=== PATIENT | male | born 1945 | race Caucasian/White ===

== ENCOUNTER 2023-06-28 06:25 | Day surgery (SDC) | payer OTHER, SELFPAY ==
[2023-06-17 13:45] VITALS: BMI 33.6
[2023-06-28] VITALS (10 sets, daily range): BP systolic 104–166; BP diastolic 55–79; PULSE 63–85; RESP 15–18; TEMP 36.1–36.7; O2SAT 95–98; BMI 33.6
--- NOTE | 2023-06-28 | DI.RAD.S_ITS ---
PROCEDURE: XR HIP W PEL IF DONE RT 2V INDICATIONS: TOTAL HIP SURGERY TECHNIQUE: 2 view(s) of the hip acquired. COMPARISON: [facility], [place], XR HIP W PEL IF DONE RT 2V, 06/28/2023, 10:23. FINDINGS: Intraoperative right hip arthroplasty. There is good anatomic alignment. Hardware appears intact. IMPRESSION: Intraoperative right hip arthroplasty. Dictated by: Sandy Quijano M.D. on 06/29/2023 at 11:07 Approved by: Sandy Quijano M.D. on 06/29/2023 at 11:08
[2023-06-28] MEDS: LACTATED RINGERS 1,000 ML 42 ML IV (06:46)
[2023-06-28] MEDS: ACETAMINOPHEN 325 MG TABLET 975 MG PO (06:56)
[2023-06-28] MEDS: MELOXICAM 7.5 MG TABLET PO (06:56)
--- NOTE | 2023-06-28 07:46 | PM.PREOP ---
Pre-operative Note Interval Note History & Physical reviewed/Exam performed by Physician: Yes Changes to H&P: No
--- NOTE | 2023-06-28 08:00 | DI.RAD.S_ITS ---
PROCEDURE: XR HIP W PEL IF DONE RT 2V INDICATIONS: DA right JUANPABLO TECHNIQUE: AP pelvis and lateral view of the hip acquired. COMPARISON: [facility], [place], XR HIP W PEL IF DONE RT 2V, 06/28/2023, 9:06. FINDINGS: Bones: Patient is status post right hip arthroplasty, with no evidence of hardware loosening or infection The hip joint appears congruent. The visualized bony structures appear intact. Soft tissues: Apparent grossly unremarkable radiographically IMPRESSION: Post-operative appearance of a hip arthroplasty. Dictated by: Reg Bethea M.D. on 06/28/2023 at 12:35 Approved by: Reg Bethea M.D. on 06/28/2023 at 12:39
[2023-06-28] MEDS: CEFAZOLIN 2 GM/100 ML PREMIX 100 ML IV ×2 (08:01→16:10)
[2023-06-28] MEDS: TRANEXAMIC ACID 1,000 MG VIAL 2000 MG INJ ×2 (08:12→09:50)
--- NOTE | 2023-06-28 08:43 | SUR.OPER ---
Patient supine on padded [place] table, one arm on padded arm board at <90, other arm padded and secured with tape across patient's chest, both legs secured in padded traction boots and positioned per surgeon, padded post at patient's groin, pressure points checked and padded.
[2023-06-28] MEDS: ROPIVACAINE/EPI/CLONIDINE/KET 50 ML SYRINGE INJ (08:49)
--- NOTE | 2023-06-28 10:33 | PM.OP.1 ---
Operative Date/Time/Diagnoses Date of procedure: 06/28/23 Pre-op diagnosis: Right hip arthritis Post-op diagnosis: same Procedure & Clinicians Procedure: Right total hip arthroplasty Same procedure as scheduled: Yes Surgeon: Fidencio Reyes Sqe: Marie Quijano Anesthesia Type: Spinal, Sedation and Local Operative Notes Estimated Blood Loss (mL): 300 Procedure in detail: Implants: Depuy Total Hip Arthroplasty: Depuy [place] Gription size 58 cup? Depuy Actis femoral stem size 7 standard offset? 36+ 5 ceramic femoral head? Procedure Summary: 78-year-old male with right hip arthritis with good bone stock. I was able to achieve a good pinch fit with his acetabular cup without screws and mobilize his femur without a conjoined tendon release. He had good stability with all trialing Procedure in Detail: This patient was seen preoperatively and evaluated for hip pain which was refractory to numerous nonoperative treatment modalities. Their hip pain correlated with radiographic changes demonstrating significant degeneration in the hip joint. The risks and benefits of continued nonoperative management versus operative management were discussed at length and all of the patient?s questions were answered. Additional educational materials providing further details beyond our discussion in clinic were provided via a publicly available patient education video which included the incidence of medical complications associated with total hip arthroplasty, reasons for revision following total hip arthroplasty, and patient satisfaction rates following total hip arthroplasty. That video can be accessed at [email or web address] . With this understanding of the risks inherent to the procedure, the patient elected to move forward with operative management. Following preoperative optimization, the patient was scheduled for surgery. The patient was met in the preoperative holding area the day of the procedure and all questions were answered. The patient?s nares were swabbed with betadine in order to decolonize them from MRSA. Informed consent was signed and the operative limb was marked with indelible ink.? The patient was brought back to the operating room where anesthesia was induced. The patient was transferred to the [place] table and all bony prominences were padded. The operative site was prepped and draped in the usual sterile fashion. Prior to incision, tranexamic acid and cefazolin were administered. Operative templating images were displayed demonstrating the anticipated implant sizes and correct operative extremity. A timeout procedure was performed verifying the patient?s identity, medical comorbidities, allergies, relevant medications, anesthesia type and the surgical plan. All present were in agreement. The assistance of a physician obstetric assistant was required for positioning, room setup, soft tissue retraction and wound closure. Without this assistance, the procedure would have been significantly more challenging and time consuming.?? A direct anterior approach to the hip was utilized. This was performed with a longitudinal incision through a Heuter interval. The incision was planned 2 cm distal and 2 cm lateral to the ASIS extending towards the lateral patella, in line with the muscle body of the TFL. Following incision, the subcutaneous tissue was dissected while taking care to avoid injury to the lateral femoral cutaneous nerve. The fascia overlying the TFL was identified by dissecting off the overlying fat and identifying perforating vessels to the TFL. The TFL fascia was incised and dissected away from the medial border of the TFL. A cobra retractor was placed over the superior femoral neck between the abductors and the hip capsule and used to reflect the TFL laterally. A [place] self-retainer was then placed in the distal aspect of the wound between the TFL and the rectus femoris. This was tensioned to open up the direct anterior interval and the lateral circumflex vessels were identified and coagulated using electrocautery. The floor of the TFL fascia was incised, exposing the pericapsular fat overlying the hip capsule. A second cobra retractor was placed on the inferior femoral neck. A double-bent soft tissue retractor was placed on the anterior wall of the acetabulum and used to tension the reflected head of rectus femoris, which was then released in order to limit soft tissue tension. A capsulotomy was made in the midline of the anterior hip capsule in line with the femoral neck ending at the vastus tubercle. The double-bent retractor was removed in order to limit the amount of time that a soft tissue retractor remained on the anterior wall and protect the femoral nerve. Tag stitches were placed in the superior and inferior leaflets of the hip capsule. An [place] soft tissue retractor was introduced over the tag stitches and tensioned in the interval between the rectus femoris and the TFL in order to retract and protect those muscles. The cobra retractors were replaced intracapsularly, with one over the superior neck in the pocket created by the base of the greater trochanter and the other on the femoral head. The capsulotomy was extended laterally to the base of the greater trochanter and medially to the lesser trochanter. This required externally rotating the hip. Once the lesser trochanter had been identified, a neck cut was planned according to measurements from preoperative templating. A ruler was cut at the length measured between the superior aspect of the lesser trochanter and the collar of the prosthesis. This line was extended towards the inferior aspect of the lateral cobra retractor to plan a cut which would leave minimal residual femoral neck laterally. The neck was cut at 60 degrees of external rotation along that line. A second cut was performed to remove a large napkin ring and facilitate head extraction. The napkin ring cut and femoral head were removed.?? A broad anterior wall retractor was placed between the labrum and the anterior capsule so that the anterior capsule would prevent capturing and pinching the femoral nerve anteriorly. An additional retractor was placed on the posterior wall. External rotation and traction were applied through the [place] table so that the cut surface of the femoral neck would not restrict access to the acetabulum. The labrum was excised sharply and the pulvinar was excised with electrocautery to limit bleeding from branches of the obturator artery. Acetabular reamers were selected based on preoperative templating and measurements of the excised femoral head. These were introduced into the acetabulum. Fluoroscopy was utilized to replicate a standing AP pelvis radiograph by centering over the pelvis, rotating until there was appropriate symmetry between the obturator foramen, and introducing caudal tilt to match the position of the pubic symphysis relative to the sacrococcygeal junction according to the patient?s anatomy. Fluoroscopy was utilized to ensure appropriate reaming depth. Once satisfied with the reaming depth corresponding to the preoperative template and the pinch fit between the columns, an appropriate sized acetabular cup was selected which would provide 1 mm of press-fit. This cup was introduced and manipulated until appropriate abduction and anteversion angles were obtained with careful attention to appropriate abduction and anteversion angles as evaluated by the position of the cup relative to the anterior and posterior finnegan of the acetabulum and the AP fluoroscopy which recreated the patient?s standing radiograph. The cup was impacted into place. Peripheral osteophytes were removed. The acetabular liner was then placed with care to ensure locking of the locking mechanism.? Attention was then turned to the femur. All retractors were removed, traction was released, a retractor was placed in the interval between the hip capsule and the gluteus minimus, and the hip was externally rotated to 90 degrees. Traction was applied through the [place] table to tension the lateral capsule and this was released using electrocautery. Traction was released and a [place] hook was placed posteriorly around the proximal femur at the level of the vastus ridge. The table height was lowered in order to restrict the tension on the anterior structures during hip hyperextension to limit the risk of femoral nerve palsy. With traction off and the hip at 90 degrees of external rotation, the hip was hyperextended and adducted while manually elevating the femur away from the acetabulum with the [place] hook to ensure it would not be caught behind the greater trochanter. An asymmetric retractor was placed over the calcar and a broad double-pronged retractor was placed over the greater trochanter. The tag stitch capturing the lateral leaflet of the capsule was moved to the medial side, leaving the conjoined and piriformis tendons isolated in the face of the greater trochanter. The hip was externally rotated and elevated. A release of the conjoined tendon was not necessary in order to obtain adequate exposure for broaching. The canal was opened with an opening broach and a rasp was used to remove cancellous bone. A rongeur was used to remove the residual lateral bone at the base of the greater trochanter to avoid placing the stem in varus. The femur was then broached to the appropriate sized stem yielding good rotational fit and fill of the canal as well as appropriate version of the stem trial. Neck and head trials were placed, all retractors were removed and the hip was returned to neutral abduction and extension. I then reduced the hip. An AP pelvis fluoroscopic image matching the preoperative standing radiograph was obtained with both lesser trochanters visible and both hips in 40 degrees of external rotation. This demonstrated appropriate leg length and offset. He does have an abnormally shaped lesser trochanter which is especially elongated so I used the superior edge of the lesser trochanter as the basis for my measurement. An AP hip fluoroscopic image was obtained with the hip in neutral rotation which demonstrated good canal fill. Good canal fill was likewise demonstrated on a 90 degree externally rotated image. Hip stability was evaluated with 90 degrees of external rotation and a 45 degree drop test which demonstrated good stability. The hip was dislocated and I returned to the broaching position. The definitive stem was placed and the trunnion was cleaned and dried. I placed a ceramic head onto the trunnion and impacted it into place on the [place] taper.?? All retractors were removed and the hip was reduced. A dilute mixture of betadine and peroxide was used to bathe the soft tissues during final fluoroscopic assessment. Appropriate component positioning was confirmed on an AP pelvis radiograph with the operative and nonoperative legs in 40 degrees of external rotation, evaluating leg length and offset. Appropriate stem fill was evaluated on an AP hip radiograph with the operative leg in neutral rotation. No fractures were identified on these radiographs. Stability was satisfactory with a 90 degree external rotation test as well as a 45 degree drop test. The hip was copiously irrigated with pulse lavage. The capsule was closed with absorbable interrupted suture. The TFL fascia was closed with barbed suture while carefully protecting the lateral femoral cutaneous nerve from entrapment. A mixture of Ropivacaine, Epinephrine, Clonidine and Toradol was infiltrated throughout the soft tissues. The skin was closed with 2-0 and 3-0 sutures. Surgical glue was applied and a soft dressing was placed.??The sponge, instrument and needle counts were reported as being correct at the end of the case.??No obvious complications occurred. The patient was transferred from the [place] table back to a stretcher. The patient emerged from anesthesia without difficulty and was taken to the PACU in a stable condition.? Plan for aftercare: Anterior hip precautions Weightbearing as tolerated Mobilization as soon as the patient has recovered from anesthesia. If physical therapists are unavailable at the time the patient is ready to ambulate, then nursing staff should help patient ambulate Aspirin 81 twice per day for DVT prophylaxis Multimodal pain regimen with no IV opioids ordered Anticipate discharge home today Follow up at [facility] in 2 weeks Detailed postoperative instructions available at [email or web address]
[2023-06-28] MEDS: ACETAMINOPHEN 325 MG TABLET 650 MG PO ×2 (11:56→16:16)
[2023-06-28] MEDS: IBUPROFEN 600 MG TABLET PO ×2 (11:57→16:16)
[2023-06-28] MEDS: LACTATED RINGERS 1,000 ML 100 ML IV (12:00)
--- NOTE | 2023-06-28 12:45 | PC.NURSE ---
Patient arrived from PACU this a.m. at 1057. He is A&Ox4 drinking coffee, he reports numbness to R LE but able to wiggle toes. Aquacel is c/d/i. He denies pain. Oriented to room, call light in reach, urinal in place, IVF LR @100ml/hr,encouraged to use IS, SCD's in place, ICE to R hip. He tolerates lunch well. VSS, afebrile on RA. Due to void this afternoon at 1600. Continuous monitoring.
--- NOTE | 2023-06-28 13:15 | PT.IIE ---
Current Diagnoses Unilateral primary osteoarthritis, right hip (06/28/23) Surgery Performed Operation Date: 06/28/23 07:45 Actual Procedures p Total Hip Arthroplasty/Anterior Approach(Right) - Fidencio Reyes MD Surgical History (Last Updated 06/17/23 @ 14:19 by Liberty Hightower RN) History of eye surgery History of right cataract extraction Hx of craniotomy (~2016) Hx of hernia repair Medical History (Last Updated 06/17/23 @ 14:20 by Liberty Hightower RN) Brain bleed (~2016) Enlarged prostate History of COVID-19 (2021) HLD (hyperlipidemia) HTN (hypertension) Osteoarthritis Peripheral neuropathy Pre-diabetes RLS (restless legs syndrome) Physical Therapy Inpatient Evaluation/Re-Eval M1 PT/OT-IP Prior Functional Status Start: 06/28/23 14:57 Freq: NEEDED Status: Active Protocol: Document 06/28/23 13:15 AB (Rec: 06/28/23 15:15 AB [id number]) Medical Review Prior Functional Status Medical History Reviewed Yes Communication able to make needs known Mobility and Gait pt stated that he was independent with all mobilities and ambulation without AD Social History Household Members spouse,children Living Arrangements House Number of Floors (Floors) Two Floors Number of Stairs To Enter/Railing? pt has a sunken living room: 1 step down has 1 step to enter the house Home Environment High Toilet,Walk in Shower Home Equipment Front Wheel Walker,Bedside Commode,Leg K[place]ara [place],Grab Bars In Shower Additional Social History Comment pt's spouse will be assisting pt but will also have his children rotating to stay with them to assist as well pt has an adjustable bed M2 PT-IP Current Condition Start: 06/28/23 14:57 Freq: NEEDED Status: Active Protocol: Document 06/28/23 13:15 AB (Rec: 06/28/23 15:15 AB [id number]) Physical Therapy Current Condition Current Condition Evaluation Date 06/28/23 Treatment Diagnosis s/p R JUANPABLO anterior; difficulty in walking Onset Date 06/28/23 M3 PT-IP Subjective Start: 06/28/23 14:57 Freq: NEEDED Status: Active Protocol: Document 06/28/23 13:15 AB (Rec: 06/28/23 15:15 AB [id number]) Subjective Physical Therapy Visit Type Type Initial Evaluation Visit Start Time 13:15 Visit Stop Time 14:30 Total Visit Minutes 75 Number of FURNACE KEEPER Visits 0 Physical Therapy Visit Comments Patient Comments agreeable to do PT Therapy Pain Assessment Location Right Hip Intensity 2 Scale Used Numeric (0 - 10) Pain Management Techniques Apply Cold,Distraction, Modification of Treatment,Re- positioning,Timing of Activity with Medications M4 PT-IP Mobility and Gait Start: 06/28/23 14:57 Freq: NEEDED Status: Active Protocol: Document 06/28/23 13:15 AB (Rec: 06/28/23 15:15 AB [id number]) PT-Bed Mobility Assessment Supine to Sit Supine to Sit Standby Assistance Sit to Supine Sit to Supine Standby Assistance PT-Transfer Assessment Sit to and From Stand Sit to and from Stand Contact Guard Assistance,1 Person Assistance,Use of Upper Extremities Equipment Transfer Assistive Device Gait Belt,Front Wheeled Walker Orthotic/Prosthetic Devices or Brace: No Transfers Transfer Destination Chair Transfer Technique ambulated Transfer Ability Level of Assist Contact Guard Assistance,1 Person Assistance,Use of Upper Extremities Comments Mobility Comments pt supine in bed. daughter in room. obtained PLOF and home set up from pt. post-op folder provided and reviewed content with pt. educated pt regarding R anterior hip precautions. pt was able to recall after education provided. BP in supine: 144/68 pt completed supine to sit SBA with cues for techniques. pt requiring increase time to complete task. pt able to sit on EOB SBA. no c/o dizziness. completed sit to stand CGA and ambulated in room ~ 30 ft with initial min A but only needing CGA midway with ambulation. requires cues for hip precautions especially during turning. pt sat on the chair. caregiver training conducted. educated pt's daughter on use of safety belt and how to assist pt. daughter was able to put safety belt on and assisted pt with sit to stand and ambulation in room ~ 12 ft . pt sat on EOB. educated pt and daughter regarding stair climbing and car transfers. pt completed sit to stand from EOB CGA with daughter assisting and ambulated towards the platform step. pt completed up/down platform step using FWW with daughter assisting min A. pt ambulated in the hallway ~ 40 ft using fWW CGA with daughter assisting and completed up/ down step again using FWW min A and occasional cues for hip precautions. pt ambulated back to his room and sat on EOB. educated pt on sit to supine in bed. pt completed SBA. pt wants to sit back up on the chair. supine to sit SBA. step transfer to the chair using FWW CGA with daughter assisting. positioned pt on the chair. call light and table placed within reach. pt and daughter without further concerns. Gait Assessment Gait Gait Assistance Required: Contact Guard Assist,Minimum Assistance Distance (Feet) 40 Able to Maintain Weight Bearing Status Yes During Gait Assistive Devices Assistive Device Gait Belt,Front Wheeled Walker Orthotic/Prosthetic Devices or Brace: No Gait Deviations General Gait Pattern Decreased Feet Clearance Factors Limiting Gait Function Factors Limiting Gait Function Decreased Activity Tolerance, Decreased Strength,Limited Range of Motion,Pain,Poor Balance Stair Climbing Assessment Evaluation Level of Assist On Stairs Minimal Assistance Devices Stair Climbing Assistive Devices Front Wheel Walker Technique/Endurance Stair Climbing Direction Ascend and Descend Stair Climbing Technique Step to Step Number of Steps Climbed 1 Query Text: Stair Climbing Set # Repetitions (reps) 2 PT-Balance Assessment Sitting Balance and Reactions Static Sitting Balance Ability Normal Dynamic Sitting Balance Ability Good Standing Balance and Reactions Static Standing Balance Ability Fair Dynamic Standing Balance Ability Fair Device Used FWW M5 PT-IP Objective Assessments Start: 06/28/23 14:57 Freq: NEEDED Status: Active Protocol: Document 06/28/23 13:15 AB (Rec: 06/28/23 15:15 AB [id number]) Orientation Orientation/Cognition Level of Alertness Alert Orientation Name,Place,Situation Language Function Ability No Deficits Noted Safety Awareness Understands Safety Issues Memory Description No Deficits Noted Gross Range of Motion Lower Extremity ROM Assessment Within Functional Limits Strength Lower Extremity Strength Assessment Right Impaired Hip 3+/5 Knee 4-/5 Sensation Assessment Sensation Gross Sensation WNL Muscle Tone Muscle Tone WNL Yes M6 PT-IP Treatment Start: 06/28/23 14:57 Freq: NEEDED Status: Active Protocol: Document 06/28/23 13:15 AB (Rec: 06/28/23 15:15 AB [id number]) Physical Therapy Treatment Education Education Provided Precautions,Weight Bearing Status,Post-Op Packet,Safety M7 PT-IP Assessment and Plan Start: 06/28/23 14:57 Freq: NEEDED Status: Active Protocol: Document 06/28/23 13:15 AB (Rec: 06/28/23 15:15 AB [id number]) PT Summary Assessment and Plan Potential Rehabilitation Potential Good Status of Condition at Evaluation Stable Summary Impairments Pain,ROM,Strength,Balance, Coordination,Sensation,Tone, Cognition,Bed Mobility, Transfers,Gait,Activity Tolerance Assessment Summary pt is a 78 y/o M s/p R JUANPABLO anterior approach POD 0. pt requiring CGA with transfers and ambulation using FWW and min A for stair climbing. caregiver training completed and pt's daughter was able to safely assist pt. pt plans to go home and family to assist him and has out pt PT set up. pt may go home when medically stable. Goals Bed Mobility Goal Independent Transfer Goal Independent,Front Wheeled Walker Gait Goal Independent,Front Wheel Walker Gait Distance 250 Other Goals up/down 1 step using FWW mod I Days to Meet Goals 5 Frequency of Treatment Frequency Of Treatment Twice a Day Treatment Plan Physical Therapy Treatment Plan Bed Mobility Training,Transfer Training,Gait Training, Therapeutic Exercise,Balance Retraining,Post Op Education, Discharge Planning,Hot or Cold Pack,Neuromuscular Re-ed, Coordination Retraining,Manual Therapy Precautions Anterior Hip Precautions No Hip Extension,No Hip External Rotation Weight Bearing Status Weight Bearing Status Weight Bear as Tolerated Allowed Weight Bearing Amount (enter % RLE WBAT or #) (%) Recommendations To Nursing Amount of Assist Needed 1 Person Assist Discharge Recommendations PT Discharge Recommendations Home with Assistance, Outpatient PT Transportation Needs at Discharge Private Vehicle
--- NOTE | 2023-06-28 16:42 | PM.PN.1 ---
Subjective Subjective Interval history: Patient is seen postoperatively. Has ambulated with Physical therapy and cleared for discharge home. Intact sensory motor function distally in the foot. Intact femoral nerve function. Has urinated. Pain well controlled. Dressing clean dry and intact. We will discharge home this evening Exam Vital Signs (past 8 hours): - 06/28/23 10:22 06/28/23 10:27 06/28/23 10:40 Temperature 97.2 F L 97.3 F L Pulse Rate 77 72 66 Respiratory Rate 15 16 17 Blood Pressure 129/69 129/69 104/70 Pulse Oximetry 97 98 98 Oxygen Delivery Method Room Air Room Air Room Air Oxygen Flow Rate 06/28/23 10:40 06/28/23 10:50 06/28/23 10:57 Temperature 96.9 F L Pulse Rate 68 68 66 Respiratory Rate 16 16 18 Blood Pressure 142/75 H 138/78 133/58 L Pulse Oximetry 98 98 96 Oxygen Delivery Method Room Air Room Air Oxygen Flow Rate 0 06/28/23 11:07 06/28/23 11:37 06/28/23 12:37 Temperature Pulse Rate 68 63 65 Respiratory Rate Blood Pressure 133/58 L 130/55 L 133/57 L Pulse Oximetry 96 96 96 Oxygen Delivery Method Oxygen Flow Rate 0 0 0 06/28/23 13:37 Temperature Pulse Rate 66 Respiratory Rate Blood Pressure 144/71 H Pulse Oximetry 97 Oxygen Delivery Method Oxygen Flow Rate 0 Oxygen Delivery Method Room Air Oxygen Flow Rate 0 PFSH Medical History (Updated 06/17/23 @ 14:20 by Liberty Hightower RN) Osteoarthritis Pre-diabetes Enlarged prostate HLD (hyperlipidemia) HTN (hypertension) Brain bleed (~2016) RLS (restless legs syndrome) Peripheral neuropathy History of COVID-19 (2021) Surgical History (Updated 06/17/23 @ 14:19 by Liberty Hightower RN) Hx of hernia repair History of eye surgery History of right cataract extraction Hx of craniotomy (~2016) Social History household members: spouse and children Smoking Status: Never smoker alcohol intake: current Quality VTE Deep Vein Thrombosis/Pulmonary Embolism Present on Admission: No
--- NOTE | 2023-06-28 17:04 | PC.NURSE ---
Patient is cleared by PT this afternoon for discharge home. Patient reports sensation returned to RLE, and verbalizes understanding of hip precautions, medications, site care, s/sx of infection as well as follow up appointment.He is able to void this afternoon and MD Reyes arrived to bedside to evaluate patient and clarify any questions for the patient. He is escorted via w/c with all of his belongings at 1700 this evening for discharge home in private vehicle with his daughter.
== END 2023-06-28 17:00 | disposition home or self-care (01) ==
LOC: OR 06:28 → AC 06:33
PROVIDERS: PCP Internal Medicine; Referring Provider Orthopaedic Surgery Adult Reconstructive Orthopaedic Surgery; Visit Provider Orthopaedic Surgery Adult Reconstructive Orthopaedic Surgery
PROC: (CPT 27130; principal; 2023-06-28 07:45)
DX: M16.11 Unilateral primary osteoarthritis, right hip (principal)
CPT/HCPCS: 27130; 73502; 76000; 97116; 97161; 97530; C1776; J0690; J1100; J2405; J2704; J3010